=== PATIENT | male | born 1965 | race Hispanic/Latino ===

== ENCOUNTER 2021-05-20 17:53 | Emergency (ER) | payer OTHER ==
[~2021-05-20] VITALS: Ht 167.6 cm; Wt 86.2 kg
[2021-05-20 17:56] VITALS: BP 143/86
[2021-05-20] MEDS ORDERED: MORPHINE 4 MG SYG ONE (18:22)
[2021-05-20] MEDS ORDERED: ONDANSETRON 4MG INJ ONE (18:22)
[2021-05-20] MEDS ORDERED: MORPHINE 4 MG SYG IV ONE (18:30)
[2021-05-20] MEDS ORDERED: ONDANSETRON 4MG INJ IVP ONE (18:30)
[2021-05-20] MEDS ORDERED: ACET1TAB25 PO (19:23)
[2021-05-20] MEDS ORDERED: IBUP-2070 PO (19:23)
[2021-05-20] MEDS ORDERED: AMOX/CLAV 875/125MG TAB PO ONE ×2 (19:30→20:34)
[2021-05-20] MEDS ORDERED: KETOROLAC 15MG/ML VIAL (15MG/ML) IV ONE (19:30)
[2021-05-20] MEDS ORDERED: KETOROLAC 15MG/ML VIAL (15MG/ML) ONE (20:34)
== END 2021-05-20 20:55 | disposition home or self-care (01) ==
LOC: EDBD 17:53 → EDH 17:53
DX: S52.501A Unspecified fracture of the lower end of right radius, initial encounter for closed fracture (principal); S02.2XXA Fracture of nasal bones, initial encounter for closed fracture; E11.9 Type 2 diabetes mellitus without complications; Z79.1 Long term (current) use of non-steroidal anti-inflammatories (NSAID); W17.89XA Other fall from one level to another, initial encounter; Y93.89 Activity, other specified; Y92.89 Other specified places as the place of occurrence of the external cause; Y99.8 Other external cause status
CPT/HCPCS: 29125; 70160; 71045; 73110; 96374; 96375; 99284; J1885; J2270; J2405